=== PATIENT | male | born 2000 | race Caucasian/White ===

== ENCOUNTER 2020-12-23 22:54 | Emergency (ER) | payer OTHER ==
[~2020-12-23] VITALS: Ht 175.3 cm; Wt 72.6 kg
[2020-12-23 22:58] VITALS: BP 134/59
[2020-12-23] MEDS: LORazepam 0.5 MG TAB PO ONE (23:48)
[2020-12-24] MEDS ORDERED: HYDR-1093 PO (00:27)
[2020-12-24 00:45] VITALS: BP 115/72
== END 2020-12-24 00:45 | disposition home or self-care (01) ==
LOC: MED 22:54
DX: F41.9 Anxiety disorder, unspecified (principal); F12.10 Cannabis abuse, uncomplicated
CPT/HCPCS: 93005; 99283